=== PATIENT | female | born 1990 | race Caucasian/White ===

== ENCOUNTER 2024-02-26 12:06 | Emergency (ER) | payer BC ==
[~2024-02-26] VITALS: Ht 177.8 cm; Wt 136.1 kg
[2024-02-26 12:14] VITALS: BP 138/98; PULSE 76; RESP 18; TEMP 97.7; O2SAT 98
[2024-02-26 14:18] VITALS: BP 115/67; PULSE 66; RESP 19; O2SAT 98
[2024-02-26] MEDS: KETOROLAC 30 MG/ML VIAL IM ONE (14:18)
[2024-02-26] MEDS ORDERED: NAPR-337 PO (15:58)
[2024-02-26] MEDS ORDERED: ACET-8905 PO (15:58)
== END 2024-02-26 16:40 | disposition home or self-care (01) ==
LOC: MED 12:06
DX: S30.0XXA Contusion of lower back and pelvis, initial encounter (principal); M79.662 Pain in left lower leg; W01.198A Fall on same level from slipping, tripping and stumbling with subsequent striking against other object, initial encounter; Y93.89 Activity, other specified; Y92.89 Other specified places as the place of occurrence of the external cause; Y99.8 Other external cause status
CPT/HCPCS: 72110; 73502; 73562; 73610; 73630; 81025; 96372; 99284; J1885